=== PATIENT | male | born 1940 | race Caucasian/White ===

== ENCOUNTER → 2017-12-26 | Outpatient (CLI) | payer MEDICARE, MEDICAID ==
[~2017-12-26] MED LIST: AGGR PO; BACL-141 PO; CLON0.1T PO; CLOP75TA33 MT; FAMO20TA8 PO; HYDR-3992 PO; HYDR10SY11 PO; KETO120S3 TP; LEVE250T2 PO; LISI40TA4 PO; METF-414 MT; METO25TA6 MT; OMEP40CA34 MT; PHEN100C12 PO; SITA50TA3 PO; TRIA15OI8 TP
[2017-12-26 12:26] LABS: BG BASE EXCESS -3.9 mmol/L (-2.0-2.0); BG CARBOXYHEMOGLOBIN 0.5 % (0.5-1.5); BG DEOXYHEMOGLOBIN 4.1 % (0.0-5.0); BG FRACTION INSPIRED OXYGEN 21; BG HCO3 ACT 20.7 mmol/L (22.0-26.0); BG OXYGEN SATURATION 95.9 % (92.0-98.5); BG OXYHEMOGLOBIN 95.4 % (94.0-97.0); BG PCO2 36.6 mmHg (35.0-45.0); BG PH 7.371 (7.350-7.450); BG PO2 84.4 mmHg (75.0-100.0); BG SAMPLE SITE LEFT RADIAL; BG TOTAL HEMOGLOBIN 13.9 g/dL (12.0-18.0); BG VENT MODE ROOM AIR
== END | disposition home or self-care (01) ==
LOC: PF 11:34
PROVIDERS: ATTEND Internal Medicine Nephrology
DX: R06.02 Shortness of breath (principal)
CPT/HCPCS: 36600; 82375; 82805

== ENCOUNTER 2018-03-08 14:05 | Inpatient (IN) | payer MEDICARE, MEDICAID ==
[~2018-03-08] VITALS: Ht 172.7 cm; Wt 76.2 kg
[~2018-03-08 14:05] MED LIST changes: -BACL-141 PO; -CLON0.1T PO; -CLOP75TA33 MT; -FAMO20TA8 PO; -HYDR-3992 PO; -HYDR10SY11 PO; -KETO120S3 TP; -LEVE250T2 PO; -METF-414 MT; -METO25TA6 MT; -OMEP40CA34 MT; -PHEN100C12 PO; -TRIA15OI8 TP
[2018-03-08 15:17] LABS: BASOPHILS % 0.8 % (0.0-2.0); EOSINOPHILS % 1.4 % (0.0-5.0); HEMATOCRIT. 43.2 % (42.0-52.0); HEMOGLOBIN. 15.2 g/dL (14.0-18.0); LYMPHOCYTES % 33.5 % (20.0-50.0); MEAN CORPUSCULAR HEMOGLOBIN 32.5 pg (28.0-32.0); MEAN CORPUSCULAR VOLUME 92.1 fL (80.0-94.0); MEAN PLATELET VOLUME 9.5 fl (7.4-10.4); NEUTROPHILS % 58.3 % (40.0-76.0); PLATELET 221 x1000/uL (130-400); RED BLOOD CELL COUNT 4.69 mill/uL (4.7-6.1); RED CELL DISTRIBUTION WIDTH 14.7 % (11.6-14.6)
[2018-03-08 15:23] LABS: CHLORIDE 109 mEq/L (98-107)
[2018-03-08 15:25] LABS: INR 1.1; PARTIAL THROMBOPLASTIN TIME 28.3 sec (23.4-31.0); PROTHROMBIN TIME 11.7 sec (9.4-11.6)
[2018-03-08 15:26] LABS: CLARITY URINE CLEAR (CLEAR); COLOR URINE DARK YELLOW (YELLOW); KETONES URINE TRACE (NEGATIVE); LEUKOCYTE ESTERASE URINE NEGATIVE (NEGATIVE); NITRITE URINE NEGATIVE (NEGATIVE); OCCULT BLOOD URINE TRACE (NEGATIVE); PROTEIN URINE 1+ (NEGATIVE); SPECIFIC GRAVITY URINE 1.036 (1.005-1.030)
[2018-03-08 15:36] LABS: AMMONIA 33 uMol/L (<32)
[2018-03-08 15:50] LABS: *AMPHETAMINES SCREEN URINE NEGATIVE (NEGATIVE); CANNABINOID URINE SCREEN NEGATIVE (NEGATIVE); METHADONE URINE SCREEN NEGATIVE (NEGATIVE); OPIATES URINE SCREEN PRESUMTIVE POSITIVE (NEGATIVE); PHENCYCLIDINE URINE SCREEN NEGATIVE (NEGATIVE)
[2018-03-08 15:51] LABS: *BARBITURATES SCREEN URINE NEGATIVE (NEGATIVE); *BENZODIAZEPINES SCREEN URINE NEGATIVE (NEGATIVE); *COCAINE SCREEN URINE NEGATIVE (NEGATIVE)
[2018-03-08] MEDS ORDERED: SODIUM CHLORIDE 0.9% 1000ML BAG (SEPSIS BOLUS) IV ONE (17:00)
[2018-03-08] MEDS ORDERED: NALOXONE HCL 1 MG/ML 2ML VIAL IV ONE (17:00)
[2018-03-08] MEDS ORDERED: PIPERACILLIN SODIUM/TAZOBACTAM 4.5 G in DEXT 5% WATER 100 ML IV NR (20:00)
[2018-03-08] MEDS ORDERED: ACETAMINOPHEN 325MG TABLET PO PRN (20:30)
[2018-03-08] MEDS ORDERED: ONDANSETRON HCL 4MG/2ML VIAL IV PRN (20:30)
[2018-03-08] MEDS ORDERED: VANCOMYCIN 1,750 MG in DEXT 5% WATER 250 ML IV SCH (21:00)
[2018-03-08 21:30] VITALS: BP 123/74
[2018-03-08 22:15] VITALS: BP 123/74
[2018-03-08 22:56] LABS: BG BASE EXCESS -4.4 mmol/L (-2.0-2.0); BG CARBOXYHEMOGLOBIN 0.8 % (0.5-1.5); BG DEOXYHEMOGLOBIN 3.8 % (0.0-5.0); BG FRACTION INSPIRED OXYGEN 21; BG HCO3 ACT 20.1 mmol/L (22.0-26.0); BG METHEMOGLOBIN 0.3 % (0.0-1.5); BG OXYGEN SATURATION 96.2 % (92.0-98.5); BG OXYHEMOGLOBIN 95.1 % (94.0-97.0); BG PCO2 35.1 mmHg (35.0-45.0); BG PH 7.375 (7.350-7.450); BG PO2 84.2 mmHg (75.0-100.0); BG SAMPLE SITE RIGHT RADIAL; BG TOTAL HEMOGLOBIN 13.1 g/dL (12.0-18.0); BG VENT MODE ROOM AIR
[2018-03-09] VITALS: BP 107/71
[2018-03-09] MEDS ORDERED: LORAZEPAM 2MG/ML CPJ IV PRN
[2018-03-09] MEDS: DEXT 5%/0.45% NACL 1000ML 1,000 ML IV SCH ×2 (00:10→11:07)
[2018-03-09 04:00] VITALS: BP 148/78
[2018-03-09] MEDS: PIPERACILLIN/TAZ 3.375G PREMIX 50 ML IV SCH ×2 (06:27→15:12)
[2018-03-09] MEDS: BLOOD SUGAR DIAGNOSTIC STRIP TEST SCH ×4 (06:33→21:00)
[2018-03-09] MEDS: INSULIN LISPRO 100 UNITS/ML SUBCUT SCH ×4 (06:33→21:00)
[2018-03-09] MEDS ORDERED: DEXTROSE 50% WATER 50ML SYRINGE IV PRN (06:45)
[2018-03-09 08:00] VITALS: BP 141/75
[2018-03-09 10:03] LABS: BASOPHILS % 0.5 % (0.0-2.0); EOSINOPHILS % 7.2 % (0.0-5.0); HEMOGLOBIN. 13.3 g/dL (14.0-18.0); LYMPHOCYTES % 31.9 % (20.0-50.0); MEAN CORPUSCULAR HEMOGLOBIN 32.7 pg (28.0-32.0); MEAN CORPUSCULAR VOLUME 93.3 fL (80.0-94.0); MEAN PLATELET VOLUME 9.8 fl (7.4-10.4); MONOCYTES % 6.2 % (2.0-8.0); NEUTROPHILS % 54.2 % (40.0-76.0); PLATELET 135 x1000/uL (130-400); RED BLOOD CELL COUNT 4.07 mill/uL (4.7-6.1); RED CELL DISTRIBUTION WIDTH 14.4 % (11.6-14.6)
[2018-03-09 10:22] LABS: CHLORIDE 111 mEq/L (98-107)
[2018-03-09 10:30] LABS: AMMONIA 40 uMol/L (<32)
[2018-03-09] MEDS: VANCOMYCIN 1 G PREMIX 200 ML IV SCH ×2 (11:08→23:22)
[2018-03-09] MEDS: ENOXAPARIN 40MG/0.4ML SYR SUBCUT SCH (11:09)
[2018-03-09 12:00] VITALS: BP 134/71
[2018-03-09 16:00] VITALS: BP 129/80
[2018-03-09 16:55] LABS: T4 FREE 0.92 ng/dL (0.76-1.46)
[2018-03-09 17:16] LABS: FOLIC ACID (FOLATE) SERUM 16.6 ng/mL (>5.38)
[2018-03-09 20:00] VITALS: BP 116/80
[2018-03-09] MEDS: ASPIRIN/DIPYRIDAMOLE 25MG/200MG CAPSULE SA PO SCH (21:00)
[2018-03-10] VITALS: BP 118/77
[2018-03-10] MEDS ORDERED: METO25TA6 MT (03:13)
[2018-03-10] MEDS ORDERED: TRIA15OI8 TP (03:14)
[2018-03-10] MEDS: DEXT 5%/0.45% NACL 1000ML 1,000 ML IV SCH ×3 (03:26→14:49)
[2018-03-10 04:00] VITALS: BP 122/76
[2018-03-10] MEDS: PIPERACILLIN/TAZ 3.375G PREMIX 50 ML IV SCH ×3 (05:45→21:01)
[2018-03-10] MEDS: BLOOD SUGAR DIAGNOSTIC STRIP TEST SCH ×4 (05:58→20:43)
[2018-03-10] MEDS: INSULIN LISPRO 100 UNITS/ML SUBCUT SCH ×4 (06:07→21:10)
[2018-03-10] MEDS ORDERED: LEVE250T2 PO (07:56)
[2018-03-10] MEDS ORDERED: BACL-141 PO (07:56)
[2018-03-10] MEDS ORDERED: FAMO20TA8 PO (07:56)
[2018-03-10] MEDS ORDERED: CLOP75TA33 MT (07:56)
[2018-03-10] MEDS ORDERED: HYDR10SY11 PO (07:56)
[2018-03-10] MEDS ORDERED: PHEN100C12 PO (07:56)
[2018-03-10] MEDS ORDERED: CLON0.1T PO (07:56)
[2018-03-10] MEDS ORDERED: METF500T4 MT (07:56)
[2018-03-10] MEDS ORDERED: KETO120S2 TP (07:56)
[2018-03-10] MEDS ORDERED: OMEP40CA34 MT (07:56)
[2018-03-10] MEDS ORDERED: HYDR-3992 PO (07:56)
[2018-03-10 08:00] VITALS: BP 138/77
[2018-03-10] MEDS: ASPIRIN/DIPYRIDAMOLE 25MG/200MG CAPSULE SA PO SCH ×2 (09:00→21:00)
[2018-03-10] MEDS: LACTULOSE 20G/30ML UDC PO SCH ×2 (09:00→17:00)
[2018-03-10] MEDS: VANCOMYCIN 1 G PREMIX 200 ML IV SCH (09:23)
[2018-03-10] MEDS: ENOXAPARIN 40MG/0.4ML SYR SUBCUT SCH (09:23)
[2018-03-10 09:29] LABS: BASOPHILS % 0.5 % (0.0-2.0); EOSINOPHILS % 5.7 % (0.0-5.0); HEMOGLOBIN. 12.1 g/dL (14.0-18.0); LYMPHOCYTES % 25.7 % (20.0-50.0); MEAN CORPUSCULAR HEMOGLOBIN 32.7 pg (28.0-32.0); MEAN CORPUSCULAR VOLUME 92.2 fL (80.0-94.0); MEAN PLATELET VOLUME 9.5 fl (7.4-10.4); MONOCYTES % 7.9 % (2.0-8.0); NEUTROPHILS % 60.2 % (40.0-76.0); PLATELET 115 x1000/uL (130-400); RED BLOOD CELL COUNT 3.69 mill/uL (4.7-6.1); RED CELL DISTRIBUTION WIDTH 14.4 % (11.6-14.6)
[2018-03-10 09:39] LABS: CHLORIDE 109 mEq/L (98-107)
[2018-03-10 10:26] LABS: HEPATITIS B SURFACE ANTIGEN NEGATIVE
[2018-03-10] MEDS: ACETAMINOPHEN 650MG SUPP PR PRN ×2 (10:42→16:57)
[2018-03-10 12:00] VITALS: BP 117/68
[2018-03-10 16:00] VITALS: BP 109/67
[2018-03-10] MEDS ORDERED: POTASSIUM CHLORIDE INJ 40 MEQ in DEXT 5% WATER 500 ML IV NR (18:30)
[2018-03-10 20:00] VITALS: BP 113/65
[2018-03-10] MEDS ORDERED: SODIUM CHLORIDE 0.45% IV NR (20:30)
[2018-03-10] MEDS ORDERED: POTASSIUM CHLORIDE IV NR (20:30)
[2018-03-10] MEDS ORDERED: MAGNESIUM 2 G PREMIX 50 ML IV NR (21:00)
[2018-03-11] VITALS: BP 154/75
[2018-03-11] MEDS: DEXT 5%/0.45% NACL 1000ML 1,000 ML IV SCH ×3 (03:35→22:14)
[2018-03-11 04:00] VITALS: BP 137/70
[2018-03-11] MEDS: PIPERACILLIN/TAZ 3.375G PREMIX 50 ML IV SCH ×3 (05:17→21:53)
[2018-03-11] MEDS: BLOOD SUGAR DIAGNOSTIC STRIP TEST SCH ×4 (06:25→21:58)
[2018-03-11] MEDS: INSULIN LISPRO 100 UNITS/ML SUBCUT SCH ×4 (06:27→22:13)
[2018-03-11 07:27] LABS: BASOPHILS % 0.6 % (0.0-2.0); EOSINOPHILS % 5.5 % (0.0-5.0); HEMATOCRIT. 33.7 % (42.0-52.0); LYMPHOCYTES % 26.9 % (20.0-50.0); MEAN CORPUSCULAR HEMOGLOBIN 32.9 pg (28.0-32.0); MEAN CORPUSCULAR VOLUME 92.5 fL (80.0-94.0); MONOCYTES % 7.3 % (2.0-8.0); NEUTROPHILS % 59.7 % (40.0-76.0); PLATELET 120 x1000/uL (130-400); RED BLOOD CELL COUNT 3.64 mill/uL (4.7-6.1); RED CELL DISTRIBUTION WIDTH 14.4 % (11.6-14.6)
[2018-03-11 08:00] VITALS: BP 149/66
[2018-03-11] MEDS: LACTULOSE 20G/30ML UDC PO SCH ×2 (09:00→17:00)
[2018-03-11] MEDS: ASPIRIN/DIPYRIDAMOLE 25MG/200MG CAPSULE SA PO SCH ×2 (09:00→21:52)
[2018-03-11] MEDS: ENOXAPARIN 40MG/0.4ML SYR SUBCUT SCH (09:21)
[2018-03-11] MEDS ORDERED: POTASSIUM CHLORIDE INJ 40 MEQ in DEXT 5% WATER 250 ML IV SCH (10:00)
[2018-03-11] MEDS: ACETAMINOPHEN 650MG SUPP PR PRN (10:27)
[2018-03-11] MEDS ORDERED: VANCOMYCIN 500 MG PREMIX 100 ML IV SCH (11:00)
[2018-03-11 12:00] VITALS: BP 158/86
[2018-03-11] MEDS ORDERED: POTASSIUM CHLORIDE 20MEQ/PACKET PO NR (14:00)
[2018-03-11 16:00] VITALS: BP 117/84
[2018-03-11 20:00] VITALS: BP 150/70
[2018-03-12] VITALS: BP 150/70
[2018-03-12 04:00] VITALS: BP 152/79
[2018-03-12] MEDS: PIPERACILLIN/TAZ 3.375G PREMIX 50 ML IV SCH ×2 (06:37→14:00)
[2018-03-12] MEDS: BLOOD SUGAR DIAGNOSTIC STRIP TEST SCH ×2 (06:40→12:07)
[2018-03-12] MEDS: INSULIN LISPRO 100 UNITS/ML SUBCUT SCH ×2 (06:44→12:07)
[2018-03-12] MEDS: DEXT 5%/0.45% NACL 1000ML 1,000 ML IV SCH (06:46)
[2018-03-12] MEDS ORDERED: CYANOCOBALAMIN 1000MCG TABLET PO SCH (07:15)
[2018-03-12 08:00] VITALS: BP 158/85
[2018-03-12] MEDS: ASPIRIN/DIPYRIDAMOLE 25MG/200MG CAPSULE SA PO SCH (08:35)
[2018-03-12] MEDS: LACTULOSE 20G/30ML UDC PO SCH (08:36)
[2018-03-12] MEDS: ENOXAPARIN 40MG/0.4ML SYR SUBCUT SCH (08:36)
[2018-03-12 12:00] VITALS: BP 161/90
[2018-03-12] MEDS ORDERED: VANCOMYCIN 1 G PREMIX 200 ML IV SCH (15:00)
[2018-03-12 15:19] VITALS: BP 159/88
== END 2018-03-12 15:46 | disposition home or self-care (01) | DRG 871 ==
LOC: ER 14:27 → 5WST 20:23 → ENRESERV 20:51
PROVIDERS: ADMIT Internal Medicine Nephrology; ATTEND Internal Medicine Nephrology
DX: A41.9 Sepsis, unspecified organism (principal); G92 Toxic encephalopathy; E11.22 Type 2 diabetes mellitus with diabetic chronic kidney disease; E11.42 Type 2 diabetes mellitus with diabetic polyneuropathy; I69.351 Hemiplegia and hemiparesis following cerebral infarction affecting right dominant side; T40.2X1A Poisoning by other opioids, accidental (unintentional), initial encounter; N18.9 Chronic kidney disease, unspecified; I12.9 Hypertensive chronic kidney disease with stage 1 through stage 4 chronic kidney disease, or unspecified chronic kidney disease; F41.9 Anxiety disorder, unspecified; I25.10 Atherosclerotic heart disease of native coronary artery without angina pectoris; K21.9 Gastro-esophageal reflux disease without esophagitis; R13.10 Dysphagia, unspecified; Z74.01 Bed confinement status; Z79.82 Long term (current) use of aspirin; Z79.899 Other long term (current) drug therapy; Z87.440 Personal history of urinary (tract) infections; Y92.89 Other specified places as the place of occurrence of the external cause
CPT/HCPCS: 36415; 36600; 51702; 70450; 70551; 71045; 76700; 80048; 80053; 80076; 80202; 80305; 81003; 82140; 82375; 82607; 82746; 82805; 82962; 83036; 83605; 83690; 83735; 83880; 84439; 84443; 84481; 84484; 85025; 85610; 85730; 86803; 87040; 87086; 87340; 92610; 93005; 96374; 97162; 97165; 99285; J1650; J1815; J2060; J2310; J2543; J3370; J3475; J3480; J7030; J7050; J7060; A4315